=== PATIENT | female | born 1960 | race Caucasian/White ===

== ENCOUNTER 2018-06-15 12:42 | Observation (INO) | payer OTHER ==
[~2018-06-15] VITALS: Ht 175.3 cm; Wt 132.9 kg
[2018-06-15] MEDS ORDERED: SODIUM CHLORIDE 0.9% 1000ML 1,000 ML IV STA (13:26)
[2018-06-15] MEDS ORDERED: MORPHINE SULFATE 2 MG/ML SYR IV STA (13:26)
[2018-06-15] MEDS ORDERED: ENOXAPARIN SODIUM INJ 100 MG/ML SYR SC STA (13:26)
[2018-06-15] MEDS ORDERED: ONDANSETRON HCL INJ 2 MG/ML VIAL IV STA (13:26)
[2018-06-15] MEDS ORDERED: NITROGLYCERIN 2% OINT 1 GM PKT TOP ONE (13:30)
[2018-06-15 13:34] LABS: BASOPHILS # (AUTO) 0.1 (0.0-0.1); BASOPHILS % 0.5 % (0.0-1.0); EOSINOPHILS # (AUTO) 0.5 (0.0-0.4); EOSINOPHILS % 4.1 % (0.0-6.0); HEMOGLOBIN 13.7 g/dL (12.0-16.0); LYMPHOCYTES # (AUTO) 2.9 (1.0-3.2); LYMPHOCYTES % 22.3 % (18.0-39.1); MEAN CORPUSCULAR HEMOGLOBIN 28.5 pg (28-32); MEAN CORPUSCULAR HGB CONC 31.9 g/dL (31-35); MEAN CORPUSCULAR VOLUME 89.4 fL (81-99); MONOCYTES # (AUTO) 1.1 (0.2-0.8); MONOCYTES % 8.7 % (4.4-11.3); NEUTROPHILS # (AUTO) 8.3 (2.1-6.9); PLATELET COUNT 316 x10e3/uL (140-360); RED BLOOD COUNT 4.81 x10e6/uL (3.6-5.1); RED CELL DISTRIBUTION WIDTH 15.7 % (11.7-14.4)
[2018-06-15 13:38] LABS: INR 1.05; PROTHROMBIN TIME 12.9 seconds (11.9-14.5)
[2018-06-15 13:39] LABS: PARTIAL THROMBOPLASTIN TIME 26.2 seconds (23.8-35.5)
[2018-06-15 13:47] LABS: ALBUMIN 3.7 g/dL (3.5-5.0); ALBUMIN/GLOBULIN RATIO 1.2 (0.8-2.0); ANION GAP 13.8 mmol/L (8-16); CALCIUM 9.7 mg/dL (8.4-10.2); CREATININE, SERUM 1.02 mg/dL (0.57-1.11); POTASSIUM 3.8 mmol/L (3.5-5.1)
[2018-06-15 14:06] LABS: CREATINE KINASE MB 0.6 ng/mL (0-5.0); THYROID STIMULATING HORMONE 0.666 uIU/mL (0.350-4.940)
--- NOTE | 2018-06-15 14:09 | Diagnostic Imaging Report ---
PROCEDURE: CHEST SINGLE (PORTABLE) COMPARISON: None. INDICATIONS: CHEST PAIN FINDINGS: LUNGS: No consolidations or edema. PLEURA: No effusions or pneumothorax. HEART \T\ MEDIASTINUM: The heart is within normal size-limits. Widening of the mediastinum likely related to the patient's body habitus. BONES \T\ SOFT TISSUES: No acute findings. CONCLUSION: No acute thoracic abnormality. Brent Carbone D.O. Dictated by: Brent Carbone D.O. on 06/15/2018 at 14:15 Electronically approved by: Brent Carbone D.O. on 06/15/2018 at 14:15
[2018-06-15] MEDS ORDERED: MORPHINE SULFATE 2 MG/ML SYR IV PRN (14:45)
[2018-06-15] MEDS ORDERED: NITROGLYCERIN 0.4 MG SUBL SL PRN (14:45)
[2018-06-15] MEDS: ENOXAPARIN SODIUM INJ 100 MG/ML SYR SC SCH (14:45)
[2018-06-15] MEDS ORDERED: SODIUM CHLORIDE FLUSH 10 ML SYR INJ PRN (14:45)
[2018-06-15] MEDS ORDERED: ONDANSETRON HCL INJ 2 MG/ML VIAL IV PRN (14:45)
[2018-06-15] MEDS ORDERED: NICOTINE 14 MG/EA PATCH TOP SCH (15:00)
[2018-06-15] MEDS ORDERED: MORPHINE SULFATE INJ 4 MG/ML INJ IV PRN (15:00)
[2018-06-15] MEDS: FAMOTIDINE 20 MG TAB PO SCH ×2 (16:11→20:20)
[2018-06-15] MEDS: NITROGLYCERIN 2% OINT 1 GM PKT TOP SCH ×2 (18:00→20:20)
[2018-06-15 18:10] VITALS: BP 124/58
[2018-06-15 18:57] VITALS: BP 124/58
[2018-06-15 19:25] VITALS: BP 127/69
[2018-06-15] MEDS: ACETAMINOPHEN 325 MG TAB PO PRN ×2 (19:45→23:45)
[2018-06-15] MEDS ORDERED: PROMETHAZINE 12.5MG/ NACL 0.9% 12.5 MG/50 ML BAG IV PRN (19:45)
[2018-06-15] MEDS ORDERED: ATORVASTATIN 10 MG TAB PO SCH (21:00)
[2018-06-15 21:45] VITALS: BP 127/69
[2018-06-15 22:10] LABS: CREATINE KINASE MB 0.7 ng/mL (0-5.0)
[2018-06-15 22:40] VITALS: BP 127/69
[2018-06-15] MEDS ORDERED: GABAPENTIN300 MG PO (23:29)
[2018-06-15] MEDS ORDERED: SULFASALAZINE500 MG PO (23:29)
[2018-06-15] MEDS ORDERED: TRAZODONE HCL50 MG PO (23:29)
[2018-06-15] MEDS ORDERED: LEXAPRO10 MG PO (23:29)
[2018-06-15] MEDS ORDERED: BENZONATATE100 MG PO (23:29)
[2018-06-15] MEDS ORDERED: LITHIUM CARBON600 MG (23:29)
[2018-06-15] MEDS ORDERED: DEXILANT60 MG (23:29)
[2018-06-15] MEDS ORDERED: LATUDA80 MG (23:29)
[2018-06-15] MEDS ORDERED: DICYCLOMINE HCL10 MG (23:29)
[2018-06-16 00:55] VITALS: BP 124/68
[2018-06-16] MEDS: ENOXAPARIN SODIUM INJ 100 MG/ML SYR SC SCH ×2 (03:24→14:29)
[2018-06-16 04:41] VITALS: BP 119/56
[2018-06-16 05:29] LABS: BASOPHILS # (AUTO) 0.1 (0.0-0.1); BASOPHILS % 0.4 % (0.0-1.0); EOSINOPHILS # (AUTO) 0.6 (0.0-0.4); EOSINOPHILS % 5.5 % (0.0-6.0); HEMATOCRIT 37.7 % (34.2-44.1); HEMOGLOBIN 11.9 g/dL (12.0-16.0); LYMPHOCYTES # (AUTO) 3.4 (1.0-3.2); LYMPHOCYTES % 29.4 % (18.0-39.1); MEAN CORPUSCULAR HEMOGLOBIN 28.9 pg (28-32); MEAN CORPUSCULAR HGB CONC 31.6 g/dL (31-35); MEAN CORPUSCULAR VOLUME 91.5 fL (81-99); MONOCYTES # (AUTO) 1.1 (0.2-0.8); MONOCYTES % 9.6 % (4.4-11.3); NEUTROPHILS # (AUTO) 6.4 (2.1-6.9); NEUTROPHILS % 54.5 % (38.7-80.0); PLATELET COUNT 276 x10e3/uL (140-360); RED BLOOD COUNT 4.12 x10e6/uL (3.6-5.1); RED CELL DISTRIBUTION WIDTH 15.8 % (11.7-14.4)
[2018-06-16] MEDS ORDERED: BENZONATATE 100 MG CAP PO PRN (05:45)
[2018-06-16 05:47] LABS: CREATINE KINASE MB 0.6 ng/mL (0-5.0)
[2018-06-16] MEDS ORDERED: DICYCLOMINE HCL 10 MG CAP PO PRN (06:00)
[2018-06-16 06:03] LABS: ANION GAP 10.7 mmol/L (8-16); CREATININE, SERUM 1.14 mg/dL (0.57-1.11); POTASSIUM 3.7 mmol/L (3.5-5.1)
[2018-06-16 07:11] LABS: CHOL/HDL RATIO 5.2 (3.0-3.6)
[2018-06-16] MEDS ORDERED: PANTOPRAZOLE SOD 40 MG TABEC PO SCH (07:30)
[2018-06-16 07:59] VITALS: BP 146/74
[2018-06-16 08:45] VITALS: BP 146/74
[2018-06-16] MEDS ORDERED: SULFASALAZINE 500 MG TAB PO SCH (09:00)
[2018-06-16] MEDS ORDERED: METOPROLOL SUCCINATE 50 MG TAB XL PO SCH (09:00)
[2018-06-16] MEDS ORDERED: ASPIRIN 81 MG ENTERIC COATED PO SCH (09:00)
[2018-06-16] MEDS ORDERED: ESCITALOPRAM OXALATE 10 MG TAB PO SCH (09:00)
[2018-06-16] MEDS ORDERED: LITHIUM CARBONATE ER 300 MG TAB PO SCH (09:00)
[2018-06-16] MEDS ORDERED: GABAPENTIN 300 MG CAP PO SCH (09:00)
--- NOTE | 2018-06-16 10:55 | Consultation ---
DATE OF CONSULTATION: June 16, 2018 REASON FOR CONSULTATION: Chest pain. This is a 57-year-old female with a history of hypertension, reflux, bipolar, Crohn, anxiety. The patient presents to [facility] ER after having some retrosternal chest pains, squeezing sensation while at PCP's office. Reports pain 8/10 with nausea and lightheadedness. Apparently, EMS was called in which she was given nitro and aspirin, which apparently relieved her symptoms. Cardiology was consulted to evaluate the patient. The patient was seen this morning in no acute distress. Reports has not had any chest discomfort since yesterday's event. Options provided with the patient. The patient wishes to proceed with ischemic evaluation. PAST MEDICAL HISTORY: Hypertension, GERD, bipolar, Crohn disease, anxiety, obesity. SURGICAL HISTORY: Right knee surgery, right foot surgery, umbilical hernia repair. MEDICATIONS 1. Gabapentin 300 mg b.i.d. 2. Latuda 80 mg once a day. 3. Sulfasalazine 500 mg t.i.d. 4. Phenergan 25 mg q.4 h. p.r.n. 5. [place] 600 mg b.i.d. 6. Lisinopril 20 mg daily. 7. Dexilant 10 mg once a day. 8. Zyprexa 5 mg once a day. 9. Trazodone as needed. FAMILY HISTORY: Mother is alive at age 89. History of heart failure and status post pacemaker. Father at the age of 87 apparently from complications of CHF and history of CAD, status post CABG. SOCIAL HISTORY: She is . She has 2 children supportive and apparently are healthy. She smokes about 5 cigarettes a day for at least the past 40 years. She drinks alcohol on occasion. ALLERGIES: FLAGYL AND TETRACYCLINE. REVIEW OF SYSTEMS GENERAL: Denies any weight gain, weight changes, fatigue, weakness, fevers, chills, night sweats. SKIN: Otherwise, no rashes, bruises, sores, lumps. HEENT: Denies any headaches. Positive for nausea. Denies any vision changes. No vertigo or tinnitus, earaches, sneezing, stuffiness, allergies, epistaxis. No sore throat, hoarseness. CARDIAC: Positive for chest pain as above. Positive for hypertension. Positive for dyspnea on exertion. Positive for intermittent lower extremity edema. Denies any orthopnea, any PND. RESPIRATORY: Positive for shortness of breath on exertion. Denies any wheezing, coughing, hemoptysis. GI: Good appetite. Positive for nausea. Denies any vomiting, any dysphagia, any diarrhea, constipation, any melena, hematochezia. URINARY: Denies any frequency, hesitancy, urgency, polyuria, hematuria. VASCULAR: Positive for intermittent lower extremity edema. MUSCULOSKELETAL: Positive for generalized joint pain specifically right knee. NEUROLOGIC: Denies any numbness, tingling, tremors, any weakness, paralysis, fainting, blackout, seizures. HEMATOLOGY: Denies any anemia, easy bruising. Denies any heat or cold intolerance, any polyuria, polydipsia, polyphagia. PSYCHIATRIC: Positive for anxiety and bipolar. PHYSICAL EXAMINATION VITALS: Height 69 inches, weight 293 pounds, BMI 43. Temperature 97.3, pulse 90, respiratory rate 17, blood pressure 146/74, pulse ox 92% on 2 L nasal cannula. GENERAL: Appears stated age and in no acute distress. Reliable informant. SKIN: With no rashes, bruises. HEENT: Normocephalic. Pupils equal, round and reactive to light. Extraocular movements intact. Trachea midline. Carotid bruits noted. No thyromegaly noted. HEART: Regular rate and rhythm. PMI in the 5th intercostal space. LUNGS: Bilateral breath sounds clear to auscultation. Good airway entry. ABDOMEN: Soft, nontender and nondistended. No organomegaly noted. However, the patient is very obese. MUSCULOSKELETAL: Good muscle strength throughout. Trace lower extremity edema. VASCULAR: Plus 2 bilaterally. Pulses are +1 DP and PT pulses. NEUROLOGIC: Cranial nerves II-XII seem intact. LABS: Sodium 144, potassium 3.7, BUN 9, creatinine 1.1. Troponin 0.001, next 0.007, next 0.002. BNP 12.5. Triglycerides 181, cholesterol 141, LDL 78, HDL 27. White count 11.7, hemoglobin 11.9, hematocrit 37, and platelets 276,000. Chest x-ray with no acute abnormalities. EKG is sinus rhythm. ASSESSMENT AND PLAN 1. Chest pain. 2. Hypertension. 3. Bipolar. 4. Obesity. 5. Smoker. 6. Family history of coronary artery disease. PLAN: The patient presents with mixed chest pain features. However, with positive risk factors of family history, the patient will continue aspirin, statin, beta sathya. Long discussion with options. The patient wishes to proceed with ischemic evaluation. Will go ahead and do a Lexiscan this morning. Echo has been ordered. Will be reviewed by cardiology attending. Further recommendations post stress test. Thank you very much for this consult. Will follow the patient and adjust cardiac therapy as course dictates. DICTATED BY SUSANA SUAREZ NP Job#: [id number]
[2018-06-16] MEDS ORDERED: REGADENOSON 0.4 MG/5 ML SYR IV ONE (11:13)
[2018-06-16] MEDS: FAMOTIDINE 20 MG TAB PO SCH (14:20)
[2018-06-16] MEDS ORDERED: TRAZODONE HCL 50 MG TAB PO SCH (21:00)
== END 2018-06-16 15:00 | disposition home or self-care (01) ==
LOC: ER 12:42 → ERHOLD 16:30 → IMCU 17:54
PROVIDERS: ADMIT Family Medicine; ATTEND Family Medicine
DX: R07.9 Chest pain, unspecified (principal); I10 Essential (primary) hypertension; Z72.0 Tobacco use; E11.9 Type 2 diabetes mellitus without complications; F31.9 Bipolar disorder, unspecified; K21.0 Gastro-esophageal reflux disease with esophagitis; Z83.3 Family history of diabetes mellitus; Z82.49 Family history of ischemic heart disease and other diseases of the circulatory system; K50.90 Crohn's disease, unspecified, without complications; E66.9 Obesity, unspecified
CPT/HCPCS: 36415 ×2; 71045; 78452; 80048; 80053; 80061; 82550 ×2; 82553 ×2; 83880; 84443; 84484 ×2; 85025 ×2; 85610; 85730; 93005; 93017; 93306; 99284; A9502; G0378 ×2; J1650 ×2; J2270 ×2; J2405 ×2; J2550; J7030; S0164